=== PATIENT | female | born 1945 | race Caucasian/White ===

== ENCOUNTER → 2016-11-27 | Outpatient (CLI) | payer MEDICARE, OTHER ==
--- NOTE | 2016-11-27 13:03 | REPMRS ---
Patient History The patient states she had a clinical breast exam in 10/26 Patient is postmenopausal and had first child at age 35. Family history of breast cancer in paternal grandmother at age 60. Benign stereotactic core biopsy of the left breast. Took hormonal contraceptives for 10 years. Digital Woman Screen Mammo: November 27, 2016 - Exam #: [id number] Bilateral CC and MLO view(s) were taken. Technologist: Magdalene Almanzar, Technologist Prior study comparison: November 27, 2015, digital woman screen mammo performed at [facility]. November 23, 2014, digital woman screen mammo performed at [facility]. November 24, 2013, bilateral bilat screen digital mammo, performed at [facility] ([facility] FINDINGS: There are scattered fibroglandular densities. There has been no change in the appearance of the mammogram from the prior studies. There is a mild amount of scattered fibroglandular density which is fairly symmetric. There is no interval development of dominant mass, architectural distortion, or clustered microcalcification suggestive of malignancy. ASSESSMENT: BI-RADS/ACR category 1 mammogram. Negative. Recommendation Routine screening mammogram in 1 year (for women over age 40). This mammogram was interpreted with the aid of an FDA-approved computer-aided dectection system. Electronically Signed By: Dudley Sierra MD 11/27/16 [id number]
== END ==
LOC: M WHC 10:23
PROVIDERS: ATTEND Internal Medicine
DX: Z12.31 Encounter for screening mammogram for malignant neoplasm of breast (principal)

== ENCOUNTER → 2017-12-02 | Outpatient (CLI) | payer MEDICARE, OTHER | LOC: M WHC 10:57 | DX: Z12.31 Encounter for screening mammogram for malignant neoplasm of breast (principal) | CPT/HCPCS: 77067 ==

== ENCOUNTER 2018-01-20 06:55 | Day surgery (SDC) | payer MEDICARE, OTHER ==
[2018-01-20] MEDS: NS 1,000 ML IV (07:15)
[2018-01-20] MEDS ORDERED: PROPOFOL 200 MG/20 ML VIAL As Ordered ×2 (07:28)
== END 2018-01-20 09:12 | disposition home or self-care (01) ==
LOC: M OPP 06:55
DX: R10.84 Generalized abdominal pain (principal); K59.00 Constipation, unspecified; Q43.8 Other specified congenital malformations of intestine; K57.30 Diverticulosis of large intestine without perforation or abscess without bleeding; E03.9 Hypothyroidism, unspecified; M19.90 Unspecified osteoarthritis, unspecified site; Z88.0 Allergy status to penicillin; Z79.899 Other long term (current) drug therapy; Z80.3 Family history of malignant neoplasm of breast; Z80.8 Family history of malignant neoplasm of other organs or systems
CPT/HCPCS: 45378

== ENCOUNTER → 2018-12-03 | Outpatient (CLI) | payer MEDICARE, OTHER ==
[~2018-12-03] MED LIST: AZEL0.05 OU; HYDR1CAP25 PO; IBUP-1114 PO; LEVO50TA5 PO; NAPR-885 PO; ZOLP5TAB PO
--- NOTE | 2018-12-03 12:35 | REP ---
BILATERAL SCREENING DIGITAL MAMMOGRAM WITH 3D TOMOSYNTHESIS: There are no palpable abnormalities or other breast complaints. The the patient states she not e had a clinical breast examination in over a year. The the patient states she performs self-breast examinations 12 times per year. The Tyrer-Cuzick Score is: 8.6% . Comparison is 11/23/2012. There are scattered areas of fibroglandular density. There is no dominant mass, micro calcific cluster or architectural distortion that would indicate malignancy. There are benign calcifications. There are no additional findings on 3D tomosynthesiss. There is no change from the prior study. Impression: BIRADS/ACR category 2 mammogram. Findings . Recommendation: Routine annual screening mammography. This mammogram was interpreted with the aid of a FDA approved computer-aided detection system. A. Negative mammogram reports should not delay biopsy if a dominant or clinically suspicious mass is present. B. Not all breast cancers are identified by mammography or tomosynthesis. C. Adenosis and dense breasts may obscure an underlying neoplasm. Patient letter M1. Electronically Signed by Fernando Coronado MD 12/03/2018 12:27 P
== END ==
LOC: M WHC 11:27
PROVIDERS: ATTEND Internal Medicine
DX: Z12.31 Encounter for screening mammogram for malignant neoplasm of breast (principal)

== ENCOUNTER → 2019-12-07 | Outpatient (CLI) | payer MEDICARE, OTHER ==
--- NOTE | 2020-01-02 10:26 | REPMRS ---
Patient History The patient states she had a clinical breast exam in April 2019. Patient is postmenopausal and had first child at age 35. Family history of breast cancer at age 60 in paternal grandmother, pancreatic cancer at age 50 or over in paternal aunt. Benign stereotactic core biopsy of the left breast. Took hormonal contraceptives for 10 years. Digital Woman Screen Mammo: December 07, 2019 - Exam #: [id number] Bilateral CC and MLO view(s) were taken. Technologist: Kristie Flores Technologist Prior study comparison: December 03, 2018, bilateral digital woman screen mammo performed at [facility]. December 02, 2017, bilateral digital woman screen mammo performed at [facility]. November 27, 2016, digital woman screen mammo performed at [facility]. FINDINGS: There are scattered fibroglandular densities. There is a moderate amount of residual fibroglandular tissue which is fairly symmetric. There is no interval development of dominant mass, architectural distortion, or grouped microcalcification typical of malignancy. There has been no change in the appearance of the mammogram from the prior studies. 3-D tomosynthesis shows no additional findings. Report was delayed due to a protracted network disruption experienced by this facility. Assessment: BI-RADS/ACR category 1 mammogram. Negative Mammogram. Recommendation Routine screening mammogram of both breasts in 1 year (for women over age 40). This patient's Lifetime Breast Cancer RIsk is estimated at 8.0 %. This mammogram was interpreted with the aid of an FDA-approved computer-aided dectection system. Electronically Signed By: Dudley Sierra MD 01/02/20 [id number]
== END ==
LOC: M WHC 09:54
PROVIDERS: ATTEND Obstetrics & Gynecology
DX: Z12.31 Encounter for screening mammogram for malignant neoplasm of breast (principal); Z78.0 Asymptomatic menopausal state; Z92.0 Personal history of contraception

== ENCOUNTER → 2020-05-02 | Outpatient (CLI) | payer MEDICARE, OTHER | LOC: M LABSMTC 12:36 | PROVIDERS: ATTEND Pediatrics | DX: Z20.828 Contact with and (suspected) exposure to other viral communicable diseases (principal) ==

== ENCOUNTER → 2020-11-16 | Outpatient (CLI) | payer MEDICARE, OTHER | LOC: M WUC 11:01 | PROVIDERS: ATTEND Internal Medicine | DX: M54.12 Radiculopathy, cervical region (principal); M47.893 Other spondylosis, cervicothoracic region ==

== ENCOUNTER → 2020-12-08 | Outpatient (CLI) | payer MEDICARE, OTHER ==
--- NOTE | 2020-12-08 12:39 | REPMRS ---
Patient History The patient states she has not had a clinical breast exam in over a year. Family history of breast cancer at age 60 in paternal grandmother, pancreatic cancer at age 50 or over in paternal aunt. Benign stereotactic core biopsy of the left breast. Took hormonal contraceptives for 10 years. Patient states no breast complaints today. Patient has signed MRS History Sheet. Digital Woman Screen Mammo: December 08, 2020 - Exam #: [id number] Bilateral CC and MLO view(s) were taken. Technologist: Kristie Flores Technologist Prior study comparison: December 07, 2019, bilateral digital woman screen mammo performed at [facility]. December 03, 2018, bilateral digital woman screen mammo performed at [facility]. FINDINGS: The breast tissue is heterogeneously dense. This may lower the sensitivity of mammography. Screening. Digital screening (2D) mammography was performed bilaterally in the CC and MLO projections. Additionally, breast tomosynthesis (3D mammography) was performed bilaterally in the CC and MLO projections. Todays exam was compared to the prior exam/exams. By history, the patient has no complaints of a palpable breast abnormality or other significant breast complaints. The breasts are unchanged in size and shape. Once again, dense heterogenous fibroglandular elements are seen bilaterally in a stable appearing pattern but to such a degree that the sensitivity of the mammogram in detecting cancer is decreased.There are no dorothy-soft tissue densities or spiculated masses. There is no internal architectural distortion. Once again, stable benign appearing calcifications are seen.There are no suspicious dorothy-calcific clusters. Skin thickening or nipple retraction is not present. IMPRESSION: BI-RADS Category 2- Benign Findings. There is no evidence of malignant alteration of the breasts. Followup examination recommended in one year. The Volpara volumetric breast density category is C, the breasts are heterogenously dense which may obscure small masses. This mammogram was read with the assistance of [employer],an FDA approved computer aided detection system for mammography. The lifetime Tyrer-Cuzick score is 7.5 % Due to the density of the breasts or Tyrer Cuzick score of 20% or greater, MRI/whole breast screening ultrasound is warranted. Negative x-ray reports should not delay surgical consultation if a dominant or clinically suspicious mass is present. Not all breast cancers can be identified by mammography. Therefore, we recommend that you continue to perform regular breast self-examination and physical examination and then promptly contact your physician of any concerns or changes. Adenosis and dense breasts may obscure an underlying neoplasm. Assessment: BI-RADS/ACR category 2 mammogram. Benign Findings. Recommendation Routine screening mammogram of both breasts in 1 year. Electronically Signed By: Brandon Teran DO 12/08/20 [id number]
== END ==
LOC: M WHC 11:19
PROVIDERS: ATTEND Internal Medicine
DX: Z12.31 Encounter for screening mammogram for malignant neoplasm of breast (principal); Z80.3 Family history of malignant neoplasm of breast

== ENCOUNTER → 2021-12-18 | Outpatient (CLI) | payer MEDICARE, OTHER | LOC: M WHC 10:34 | PROVIDERS: ATTEND Obstetrics & Gynecology | DX: Z12.31 Encounter for screening mammogram for malignant neoplasm of breast (principal); M85.89 Other specified disorders of bone density and structure, multiple sites ==

== ENCOUNTER → 2021-12-18 | Outpatient (CLI) | payer MEDICARE, OTHER | LOC: M WHC 10:33 | PROVIDERS: ATTEND Internal Medicine | DX: M81.0 Age-related osteoporosis without current pathological fracture (principal) ==

== ENCOUNTER → 2022-01-19 | Outpatient (CLI) | payer MEDICARE, OTHER ==
[2022-01-19 17:12] LABS: BLOOD UREA NITROGEN 12 MG/DL (7-18); CALCIUM LEVEL 9.2 MG/DL (8.8-10.2); CARBON DIOXIDE LEVEL 31 MEQ/L (21-32); CHLORIDE LEVEL 102 MEQ/L (98-107); CREATININE FOR GFR 0.88 MG/DL (0.55-1.30); GLOMERULAR FILTRATION RATE > 60.0 (>39); GLUCOSE, FASTING 91 MG/DL (70-100); POTASSIUM SERUM 4.6 MEQ/L (3.5-5.1); SODIUM LEVEL 136 MEQ/L (136-145)
== END ==
LOC: M LAB 15:54
PROVIDERS: ATTEND Physician Assistant
DX: U07.1 COVID-19 (principal)

== ENCOUNTER → 2022-10-29 | Outpatient (CLI) | payer MEDICARE, OTHER ==
[2022-10-29 13:26] LABS: ALBUMIN 3.6 G/DL (3.2-5.2); ALKALINE PHOSPHATASE 60 U/L (46-116); ALT/SGPT 22 U/L (7.0-40); AST/SGOT 26 U/L (<34); BILIRUBIN,TOTAL 0.9 MG/DL (0.3-1.2); BLOOD UREA NITROGEN 14 MG/DL (9-23); CALCIUM LEVEL 8.6 MG/DL (8.3-10.6); CARBON DIOXIDE LEVEL 30 MMOL/L (20-31); CHLORIDE LEVEL 104 MMOL/L (98-107); CHOLESTEROL LEVEL 196 MG/DL (<200); CHOLESTEROL RISK RATIO 2.91 (<5); CREATININE FOR GFR 0.92 MG/DL (0.55-1.30); GLOMERULAR FILTRATION RATE > 60.0 (>39); GLUCOSE, FASTING 90 MG/DL (74-106); HDL CHOLESTEROL 67.2 MG/DL (>40); NON-HDL-C 128.8 MG/DL; POTASSIUM SERUM 4.7 MMOL/L (3.5-5.1); SODIUM LEVEL 139 MMOL/L (136-145); TOTAL PROTEIN 6.1 G/DL (5.7-8.2); TRIGLYCERIDES LEVEL 49 MG/DL (<150)
== END ==
LOC: M WUC 09:14
PROVIDERS: ATTEND Internal Medicine
DX: E03.9 Hypothyroidism, unspecified (principal); E78.2 Mixed hyperlipidemia

== ENCOUNTER → 2022-12-19 | Outpatient (CLI) | payer MEDICARE, OTHER | LOC: M WHC 11:07 | PROVIDERS: ATTEND Internal Medicine | DX: Z12.31 Encounter for screening mammogram for malignant neoplasm of breast (principal) ==

== ENCOUNTER → 2023-01-11 | Outpatient (REF) | payer MEDICARE, OTHER | LOC: M LAB REF 08:48 | PROVIDERS: ATTEND Physician Assistant | DX: N30.01 Acute cystitis with hematuria (principal) ==

== ENCOUNTER → 2023-02-13 | Outpatient (CLI) | payer MEDICARE, OTHER | LOC: M PLAIMG 08:51 | PROVIDERS: ATTEND Otolaryngology | DX: J32.9 Chronic sinusitis, unspecified (principal) ==

== ENCOUNTER → 2023-03-07 | Outpatient (REF) | payer MEDICARE, OTHER ==
[2023-03-07 18:05] LABS: CREATININE FOR GFR 0.96 MG/DL (0.55-1.30)
== END ==
LOC: M LABWUC 16:09
PROVIDERS: ATTEND Internal Medicine
DX: R31.9 Hematuria, unspecified (principal)

== ENCOUNTER → 2023-03-13 | Outpatient (CLI) | payer MEDICARE, OTHER ==
[~2023-03-13] MED LIST changes: +ISOVUE-370 76% 100ML VIAL As Ordered ONE
== END ==
LOC: M RAD 13:55
PROVIDERS: ATTEND Internal Medicine
DX: R31.9 Hematuria, unspecified (principal)
CPT/HCPCS: 74178; Q9967

== ENCOUNTER → 2023-04-11 | Outpatient (REF) | payer MEDICARE, OTHER ==
[~2023-04-11] MED LIST changes: -ISOVUE-370 76% 100ML VIAL As Ordered ONE
== END ==
LOC: M LAB REF 14:58
PROVIDERS: ATTEND Internal Medicine
DX: E03.9 Hypothyroidism, unspecified (principal)

== ENCOUNTER → 2023-04-25 | Outpatient (CLI) | payer MEDICARE, OTHER ==
[~2023-04-25] MED LIST changes: +CALC-190 PO; +CHOL1CAP PO; +LEXA1TAB2 PO; +MIRA3350 PO; +MONT10TA97 PO; +PARO40TA2 PO; +QC F0.52 PO; +VITMTA PO; +ZOLP10TA2 PO
[2023-04-25 11:17] LABS: HEMATOCRIT 38.1 % (36.0-47.0); HEMOGLOBIN 12.5 g/dl (12.0-15.5); MEAN CORPUSCULAR HEMOGLOBIN 31.6 pg (27.0-33.0); MEAN CORPUSCULAR HGB CONC 32.8 g/dl (32.0-36.5); MEAN CORPUSCULAR VOLUME 96.2 fl (80.0-96.0); PLATELET COUNT, AUTOMATED 217 10^3/uL (150-450); RED BLOOD COUNT 3.96 10^6/uL (4.00-5.40); WHITE BLOOD COUNT 4.8 10^3/uL (4.0-10.0)
[2023-04-25 11:38] LABS: APPEARANCE, URINE HAZY (CLEAR); BACTERIA, URINE AUTO NEGATIVE (NEGATIVE); BILIRUBIN, URINE AUTO NEGATIVE (NEGATIVE); BLOOD, URINE BLOOD 1+ (NEGATIVE); COLOR, URINE YELLOW (YELLOW); GLUCOSE, URINE (UA) AUTO NEGATIVE (NEGATIVE); KETONE, URINE AUTO NEGATIVE (NEGATIVE); LEUKOCYTE ESTERASE, URINE AUTO NEGATIVE (NEGATIVE); NITRITE, URINE AUTO NEGATIVE (NEGATIVE); PROTEIN, URINE AUTO NEGATIVE (NEGATIVE); RBC, URINE AUTO 20 /HPF (0-3); SPECIFIC GRAVITY URINE AUTO 1.011 (1.002-1.035); SQUAMOUS EPITHELIAL CELL UR AU 1 /HPF (0-6); UROBILINOGEN, URINE AUTO 0.2 mg/dL (0.0-2.0); WBC, URINE AUTO 1 /HPF (0-3)
[2023-04-25 11:48] LABS: BLOOD UREA NITROGEN 16 MG/DL (9-23); CALCIUM LEVEL 9.1 MG/DL (8.3-10.6); CARBON DIOXIDE LEVEL 31 MMOL/L (20-31); CHLORIDE LEVEL 102 MMOL/L (98-107); CREATININE FOR GFR 0.82 MG/DL (0.55-1.30); GLOMERULAR FILTRATION RATE > 60.0 (>39); GLUCOSE, FASTING 78 MG/DL (74-106); POTASSIUM SERUM 4.1 MMOL/L (3.5-5.1); SODIUM LEVEL 139 MMOL/L (136-145)
== END ==
LOC: M RAD 10:33
PROVIDERS: ATTEND Nurse Practitioner Family
DX: Z01.818 Encounter for other preprocedural examination (principal)

== ENCOUNTER 2023-05-01 07:50 | Day surgery (SDC) | payer MEDICARE, OTHER ==
[~2023-05-01] VITALS: Ht 157.5 cm; Wt 49.0 kg
[2023-05-01] MEDS ORDERED: LR 1,000 ML IV SCH ×2 (09:00→11:30)
[2023-05-01] MEDS ORDERED: ceFAZolin SOD 2 GM in IV 1 EA IV ONE (09:50)
[2023-05-01] MEDS ORDERED: ISOVUE-300 61% 100ML VIAL As Ordered ONE (10:14)
[2023-05-01] MEDS ORDERED: METOCLOPRAMIDE INJ 10MG/2ML VIAL As Ordered ONE (10:39)
[2023-05-01] MEDS ORDERED: LIDOCAINE 2% 100MG/5ML SDV (FOR ANES.) As Ordered ONE (10:39)
[2023-05-01] MEDS ORDERED: fentaNYL 100 MCG/2 ML INJECTION As Ordered ONE (10:39)
[2023-05-01] MEDS ORDERED: ONDANSETRON 4MG 2ML VIAL As Ordered ONE (10:39)
[2023-05-01] MEDS ORDERED: propofoL 200 MG/20 ML VIAL As Ordered ONE (10:39)
[2023-05-01] MEDS ORDERED: MIDAZOLAM INJ 2MG/2ML VIAL As Ordered ONE (10:39)
[2023-05-01] MEDS ORDERED: dexmedeTOMIDine (4MCG/ML)200MCG/50ML BTL (PRECEDEX) As Ordered ONE ×2 (10:39→11:02)
[2023-05-01] MEDS ORDERED: ACETAMINOPHEN 1000MG 100ML IV BAG As Ordered ONE (10:43)
[2023-05-01] MEDS ORDERED: oxyCODONE 5MG TAB PO PRN (11:30)
[2023-05-01] MEDS ORDERED: ONDANSETRON 4MG 2ML VIAL IV PRN (11:30)
[2023-05-01] MEDS ORDERED: fentaNYL 100 MCG/2 ML INJECTION IV PRN (11:30)
[2023-05-01] MEDS ORDERED: HYDROMORPHONE HCL 0.5 MG/ 0.5 ML SYRINGE IV PRN (11:30)
[2023-05-01] MEDS ORDERED: MACR100C43 PO (12:04)
[2023-05-01] MEDS ORDERED: OXYB5TAB11 PO (12:04)
[2023-05-01] MEDS ORDERED: PYRI1TAB5 PO (12:04)
[2023-05-01 12:52] VITALS: BP 131/66; TEMP 98.5; O2SAT 98
== END 2023-05-01 12:57 | disposition home or self-care (01) ==
LOC: M SDC 07:50
PROVIDERS: ATTEND Urology
DX: N13.1 Hydronephrosis with ureteral stricture, not elsewhere classified (principal); E03.9 Hypothyroidism, unspecified; Z90.721 Acquired absence of ovaries, unilateral; Z79.899 Other long term (current) drug therapy; Z79.890 Hormone replacement therapy; Z87.891 Personal history of nicotine dependence; Z88.0 Allergy status to penicillin
CPT/HCPCS: 52332; 52344; 76000; C1769; C2617; J0131; J1100; J2250; J2405; J2765; J3010; Q9967

== ENCOUNTER → 2023-05-22 | Outpatient (REF) | payer MEDICARE, OTHER ==
[~2023-05-22] MED LIST changes: +MACR100C43 PO; +OXYB5TAB11 PO; +PYRI1TAB5 PO
== END ==
LOC: M SFHCWAGY 15:55
PROVIDERS: ATTEND Nurse Practitioner Family
DX: Z12.4 Encounter for screening for malignant neoplasm of cervix (principal); N95.2 Postmenopausal atrophic vaginitis
CPT/HCPCS: 87624; G0123

== ENCOUNTER → 2023-06-13 | Outpatient (CLI) | payer MEDICARE, OTHER ==
[~2023-06-13] MED LIST changes: +FUROSEMIDE 20MG/2ML VIAL As Ordered ONE
== END ==
LOC: M RAD 12:31
PROVIDERS: ATTEND Urology
DX: N28.89 Other specified disorders of kidney and ureter (principal)
CPT/HCPCS: 78708; A9562; J1940

== ENCOUNTER → 2023-09-12 | Outpatient (CLI) | payer MEDICARE, OTHER ==
[~2023-09-12] MED LIST changes: -FUROSEMIDE 20MG/2ML VIAL As Ordered ONE; -OXYB5TAB11 PO; +OXYB5TAB14 PO
[2023-09-12 12:44] LABS: BASO % 0.7 % (0.0-1.0); EOS # 0.1 10^3/uL (0.0-0.5); EOS % 1.8 % (0.0-3.0); HEMATOCRIT 38.6 % (36.0-47.0); HEMOGLOBIN 12.8 g/dl (12.0-15.5); LYMPH # 1.7 10^3/uL (1.5-5.0); LYMPH % 29.8 % (24.0-44.0); MEAN CORPUSCULAR HGB CONC 33.2 g/dl (32.0-36.5); MEAN CORPUSCULAR VOLUME 96.5 fl (80.0-96.0); MONO # 0.6 10^3/uL (0.0-0.8); MONO % 10.7 % (2.0-8.0); NEUTROPHILS # 3.2 10^3/uL (1.5-8.5); NEUTROPHILS % 56.8 % (36.0-66.0); PLATELET COUNT, AUTOMATED 207 10^3/uL (150-450); WHITE BLOOD COUNT 5.6 10^3/uL (4.0-10.0)
[2023-09-12 13:11] LABS: ALBUMIN 3.6 G/DL (3.2-5.2); BILIRUBIN,TOTAL 0.9 MG/DL (0.3-1.2); CALCIUM LEVEL 8.8 MG/DL (8.3-10.6); CREATININE FOR GFR 1.01 MG/DL (0.55-1.30); GLOMERULAR FILTRATION RATE 56.6 (>39); POTASSIUM SERUM 4.5 MMOL/L (3.5-5.1); TOTAL PROTEIN 6.3 G/DL (5.7-8.2)
== END ==
LOC: M WUC 09:32
PROVIDERS: ATTEND Internal Medicine
DX: R31.9 Hematuria, unspecified (principal)

== ENCOUNTER → 2023-11-10 | Outpatient (CLI) | payer MEDICARE, OTHER ==
[~2023-11-10] MED LIST changes: +THERTAB52 PO; +VITA100093 PO
[2023-11-10 12:46] LABS: HEMATOCRIT 38.6 % (36.0-47.0); HEMOGLOBIN 12.7 g/dl (12.0-15.5); MEAN CORPUSCULAR HEMOGLOBIN 32.2 pg (27.0-33.0); MEAN CORPUSCULAR HGB CONC 32.9 g/dl (32.0-36.5); PLATELET COUNT, AUTOMATED 193 10^3/uL (150-450); RED BLOOD COUNT 3.94 10^6/uL (4.00-5.40); WHITE BLOOD COUNT 9.9 10^3/uL (4.0-10.0)
[2023-11-10 12:51] LABS: APPEARANCE, URINE CLEAR (CLEAR); BACTERIA, URINE AUTO NEGATIVE (NEGATIVE); BILIRUBIN, URINE AUTO NEGATIVE (NEGATIVE); BLOOD, URINE BLOOD 1+ (NEGATIVE); COLOR, URINE YELLOW (YELLOW); GLUCOSE, URINE (UA) AUTO NEGATIVE (NEGATIVE); KETONE, URINE AUTO NEGATIVE (NEGATIVE); LEUKOCYTE ESTERASE, URINE AUTO NEGATIVE (NEGATIVE); MUCUS, URINE SMALL (NEGATIVE); NITRITE, URINE AUTO NEGATIVE (NEGATIVE); PROTEIN, URINE AUTO NEGATIVE (NEGATIVE); RBC, URINE AUTO 29 /HPF (0-3); SQUAMOUS EPITHELIAL CELL UR AU 0 /HPF (0-6); UROBILINOGEN, URINE AUTO 0.2 mg/dL (0.0-2.0); WBC, URINE AUTO 4 /HPF (0-3)
[2023-11-10 13:05] LABS: INR 1.03; PARTIAL THROMBOPLASTIN TIME 36.6 SECONDS (24.8-34.2); PROTHROMBIN TIME 13.2 SECONDS (12.5-14.5)
[2023-11-10 13:27] LABS: ALBUMIN 3.8 G/DL (3.2-5.2); ALKALINE PHOSPHATASE 72 U/L (46-116); ALT/SGPT 69 U/L (7.0-40); AST/SGOT 43 U/L (<34); BLOOD UREA NITROGEN 14 MG/DL (9-23); CALCIUM LEVEL 8.9 MG/DL (8.3-10.6); CARBON DIOXIDE LEVEL 33 MMOL/L (20-31); CHLORIDE LEVEL 102 MMOL/L (98-107); CREATININE FOR GFR 0.88 MG/DL (0.55-1.30); GLOMERULAR FILTRATION RATE > 60.0 (>39); GLUCOSE, FASTING 86 MG/DL (74-106); POTASSIUM SERUM 4.1 MMOL/L (3.5-5.1); SODIUM LEVEL 138 MMOL/L (136-145); TOTAL PROTEIN 6.3 G/DL (5.7-8.2)
== END ==
LOC: M RAD 10:26
PROVIDERS: ATTEND Urology
DX: N13.5 Crossing vessel and stricture of ureter without hydronephrosis (principal); I49.3 Ventricular premature depolarization; R94.31 Abnormal electrocardiogram [ECG] [EKG]

== ENCOUNTER 2023-11-19 06:06 | Inpatient (IN) | payer MEDICARE, OTHER ==
[2023-11-19] VITALS (9 sets, daily range): BP systolic 112–150; BP diastolic 60–85; TEMP 97.2–98; O2SAT 82–97
[~2023-11-19] VITALS: Ht 157.5 cm; Wt 48.5 kg
[2023-11-19] MEDS ORDERED: LR 1,000 ML IV SCH (06:45)
[2023-11-19] MEDS ORDERED: HOME MED LIST COMPLETE! XX SCH (07:15)
[2023-11-19] MEDS ORDERED: ONDANSETRON 4MG 2ML VIAL IV PRN ×2 (07:35→11:55)
[2023-11-19] MEDS ORDERED: fentaNYL 250 MCG/5 ML INJECTION As Ordered ONE (08:08)
[2023-11-19] MEDS ORDERED: ONDANSETRON 4MG 2ML VIAL As Ordered ONE (08:08)
[2023-11-19] MEDS ORDERED: MIDAZOLAM INJ 2MG/2ML VIAL As Ordered ONE (08:08)
[2023-11-19] MEDS ORDERED: propofoL 200 MG/20 ML VIAL As Ordered ONE (08:08)
[2023-11-19] MEDS ORDERED: SUGAMMADEX SODIUM 500 MG/5 ML VIAL (BRIDION) As Ordered ONE (08:08)
[2023-11-19] MEDS ORDERED: LIDOCAINE 2% 100MG/5ML SDV (FOR ANES.) As Ordered ONE (08:08)
[2023-11-19] MEDS ORDERED: ROCURONIUM BROMIDE 50MG/5ML VIAL As Ordered ONE (08:08)
[2023-11-19] MEDS ORDERED: ePHEDrine SULFATE 25 MG/5 ML(5MG/ML) SYRINGE As Ordered ONE (08:13)
[2023-11-19] MEDS ORDERED: ACETAMINOPHEN 1000MG 100ML IV BAG As Ordered ONE (08:21)
[2023-11-19] MEDS: DOCUSATE SODIUM 100MG CAPSULE PO SCH (09:00)
[2023-11-19] MEDS ORDERED: HYDROmorphone HCL 2MG/ML 1ML VIAL As Ordered ONE (09:52)
[2023-11-19] MEDS: METHYLENE BLUE 0.5% (5MG/ML) 10 ML AMP (PROVAYBLUE) As Ordered ONE (11:00)
[2023-11-19] MEDS: LIDOCAINE 1% SDV 30ML VIAL As Ordered ONE (11:40)
[2023-11-19] MEDS ORDERED: fentaNYL 100 MCG/2 ML INJECTION IV PRN (11:55)
[2023-11-19] MEDS ORDERED: oxyCODONE 5MG TAB PO PRN (11:55)
[2023-11-19 13:30] LABS: HEMATOCRIT 37.3 % (36.0-47.0); HEMOGLOBIN 12.1 g/dl (12.0-15.5); MEAN CORPUSCULAR HEMOGLOBIN 31.6 pg (27.0-33.0); MEAN CORPUSCULAR HGB CONC 32.4 g/dl (32.0-36.5); MEAN CORPUSCULAR VOLUME 97.4 fl (80.0-96.0); PLATELET COUNT, AUTOMATED 275 10^3/uL (150-450); RED BLOOD COUNT 3.83 10^6/uL (4.00-5.40); WHITE BLOOD COUNT 12.2 10^3/uL (4.0-10.0)
[2023-11-19 13:42] LABS: BLOOD UREA NITROGEN 10 MG/DL (9-23); CALCIUM LEVEL 8.7 MG/DL (8.3-10.6); CARBON DIOXIDE LEVEL 25 MMOL/L (20-31); CHLORIDE LEVEL 105 MMOL/L (98-107); CREATININE FOR GFR 0.82 MG/DL (0.55-1.30); GLOMERULAR FILTRATION RATE > 60.0 (>39); GLUCOSE, FASTING 145 MG/DL (74-106); POTASSIUM SERUM 4.5 MMOL/L (3.5-5.1); SODIUM LEVEL 139 MMOL/L (136-145)
[2023-11-19] MEDS: ceFAZolin SOD 2 GM in IV 1 EA IV ONE (14:34)
[2023-11-19] MEDS: NS 1,000 ML IV SCH (16:46)
[2023-11-19] MEDS: ceFAZolin SOD 1 GM in D5W MINI-BAG PLUS 50 ML IV SCH (16:46)
[2023-11-19] MEDS: PERCOCET 5MG/325MG TAB PO PRN ×2 (16:47→21:25)
[2023-11-19] MEDS: PARoxetine 20MG TABLET PO SCH (21:25)
[2023-11-20 05:34] VITALS: BP 110/61; TEMP 97.6; O2SAT 94
[2023-11-20] MEDS: LEVOTHYROXINE 50MCG TABLET (0.05MG) PO SCH (05:42)
[2023-11-20 06:33] LABS: HEMATOCRIT 32.9 % (36.0-47.0); HEMOGLOBIN 10.5 g/dl (12.0-15.5); MEAN CORPUSCULAR HEMOGLOBIN 31.2 pg (27.0-33.0); MEAN CORPUSCULAR HGB CONC 31.9 g/dl (32.0-36.5); MEAN CORPUSCULAR VOLUME 97.6 fl (80.0-96.0); PLATELET COUNT, AUTOMATED 268 10^3/uL (150-450); RED BLOOD COUNT 3.37 10^6/uL (4.00-5.40); WHITE BLOOD COUNT 14.4 10^3/uL (4.0-10.0)
[2023-11-20 06:56] LABS: BLOOD UREA NITROGEN 10 MG/DL (9-23); CALCIUM LEVEL 8.6 MG/DL (8.3-10.6); CARBON DIOXIDE LEVEL 30 MMOL/L (20-31); CHLORIDE LEVEL 105 MMOL/L (98-107); CREATININE FOR GFR 0.76 MG/DL (0.55-1.30); GLOMERULAR FILTRATION RATE > 60.0 (>39); GLUCOSE, FASTING 91 MG/DL (74-106); POTASSIUM SERUM 4.7 MMOL/L (3.5-5.1); SODIUM LEVEL 139 MMOL/L (136-145)
[2023-11-20] MEDS: ACETAMINOPHEN TAB 650MG DOSE (2X325MG) PO PRN (07:52)
[2023-11-20 08:31] VITALS: BP 115/64; TEMP 97.5; O2SAT 91
[2023-11-20 12:00] VITALS: BP 114/65; TEMP 97.7; O2SAT 93
[2023-11-20] MEDS ORDERED: PERCOCET PO (13:41)
== END 2023-11-20 14:35 | disposition home or self-care (01) | DRG 660 ==
LOC: M OR 06:06 → M MS5PR 14:00
PROVIDERS: ADMIT Urology; ATTEND Urology
PROC: 0T774DZ Dilation of Left Ureter with Intraluminal Device, Percutaneous Endoscopic Approach (ICD-10-PCS; 2023-11-19)
PROC: 8E0W4CZ Robotic Assisted Procedure of Trunk Region, Percutaneous Endoscopic Approach (ICD-10-PCS; 2023-11-19)
PROC: 0TC44ZZ Extirpation of Matter from Left Kidney Pelvis, Percutaneous Endoscopic Approach (ICD-10-PCS; principal; 2023-11-19 07:30)
DX: N20.0 Calculus of kidney (principal); N13.8 Other obstructive and reflux uropathy; Z88.0 Allergy status to penicillin; Z79.899 Other long term (current) drug therapy; E03.9 Hypothyroidism, unspecified

== ENCOUNTER 2023-12-18 07:30 | Day surgery (SDC) | payer MEDICARE, OTHER ==
[~2023-12-18] VITALS: Ht 157.5 cm; Wt 46.7 kg
[~2023-12-18 07:30] MED LIST changes: +PERCOCET PO
[2023-12-18] MEDS ORDERED: LR 1,000 ML IV SCH ×2 (07:45→11:10)
[2023-12-18] MEDS ORDERED: KETOROLAC 60MG 2ML VIAL As Ordered ONE (09:17)
[2023-12-18] MEDS ORDERED: propofoL 200 MG/20 ML VIAL As Ordered ONE (09:17)
[2023-12-18] MEDS ORDERED: LIDOCAINE 2% 100MG/5ML SDV (FOR ANES.) As Ordered ONE (09:17)
[2023-12-18] MEDS ORDERED: ACETAMINOPHEN 1000MG 100ML IV BAG As Ordered ONE (09:17)
[2023-12-18] MEDS: ceFAZolin SOD 2 GM in IV 1 EA IV ONE (09:42)
[2023-12-18] MEDS ORDERED: FLOM0.4C39 PO (10:04)
[2023-12-18] MEDS ORDERED: TRAM50TA2 PO (10:04)
[2023-12-18] MEDS ORDERED: OXYB10TA23 PO (10:04)
[2023-12-18] MEDS ORDERED: ONDANSETRON 4MG 2ML VIAL As Ordered ONE (10:37)
[2023-12-18] MEDS ORDERED: ROCURONIUM BROMIDE 50MG/5ML VIAL As Ordered ONE (10:37)
[2023-12-18] MEDS ORDERED: SUGAMMADEX SODIUM 500 MG/5 ML VIAL (BRIDION) As Ordered ONE (10:43)
[2023-12-18] MEDS ORDERED: fentaNYL 100 MCG/2 ML INJECTION IV PRN (11:10)
[2023-12-18] MEDS ORDERED: ONDANSETRON 4MG 2ML VIAL IV PRN (11:10)
[2023-12-18 11:35] VITALS: BP 134/68; TEMP 98.2; O2SAT 95
== END 2023-12-18 12:15 | disposition home or self-care (01) ==
LOC: M SDC 07:30
PROVIDERS: ATTEND Urology
DX: N20.0 Calculus of kidney (principal); E03.9 Hypothyroidism, unspecified; E78.00 Pure hypercholesterolemia, unspecified; K21.9 Gastro-esophageal reflux disease without esophagitis; Z87.19 Personal history of other diseases of the digestive system; Z79.899 Other long term (current) drug therapy; Z79.890 Hormone replacement therapy; Z90.721 Acquired absence of ovaries, unilateral; Z88.0 Allergy status to penicillin
CPT/HCPCS: 50590; 74018; J0131; J0690; J1100; J1885; J2405

== ENCOUNTER → 2023-12-26 | Outpatient (CLI) | payer MEDICARE, OTHER ==
[~2023-12-26] MED LIST changes: +FLOM0.4C39 PO; +OXYB10TA23 PO; +TRAM50TA2 PO
== END ==
LOC: M RAD 12:27
PROVIDERS: ATTEND Urology
DX: N20.0 Calculus of kidney (principal)

== ENCOUNTER → 2024-02-09 | Outpatient (CLI) | payer MEDICARE, OTHER ==
[~2024-02-09] MED LIST changes: +ISOVUE-370 76% 100ML VIAL As Ordered ONE
== END ==
LOC: M RAD 11:04
PROVIDERS: ATTEND Urology
DX: N13.5 Crossing vessel and stricture of ureter without hydronephrosis (principal); R91.8 Other nonspecific abnormal finding of lung field; N20.0 Calculus of kidney
CPT/HCPCS: 74178; Q9967

== ENCOUNTER → 2024-04-14 | Outpatient (REF) | payer MEDICARE, OTHER ==
[~2024-04-14] MED LIST changes: -ISOVUE-370 76% 100ML VIAL As Ordered ONE
[2024-04-14 19:04] LABS: ALBUMIN 3.5 G/DL (3.2-5.2); BILIRUBIN,TOTAL 0.4 MG/DL (0.3-1.2); CALCIUM LEVEL 9.9 MG/DL (8.3-10.6); CHOLESTEROL RISK RATIO 3.33 (<5); CREATININE FOR GFR 0.98 MG/DL (0.55-1.30); GLOMERULAR FILTRATION RATE 58.4 (>39); HDL CHOLESTEROL 66.8 MG/DL (>40); LDL CHOLESTEROL 134.2 MG/DL (<100); NON-HDL-C 156.2 MG/DL; POTASSIUM SERUM 4.5 MMOL/L (3.5-5.1); TOTAL PROTEIN 6.8 G/DL (5.7-8.2)
[2024-04-14 19:07] LABS: THYROID STIMULATING HORMONE 1.667 uIU/ML (0.55-4.78)
== END ==
LOC: M LABWUC 17:47
PROVIDERS: ATTEND Internal Medicine
DX: E78.2 Mixed hyperlipidemia (principal); E03.9 Hypothyroidism, unspecified

== ENCOUNTER → 2024-09-20 | Outpatient (CLI) | payer MEDICARE, OTHER ==
[~2024-09-20] MED LIST changes: -FLOM0.4C39 PO; +TAMS-18 PO
== END ==
LOC: M RAD 10:54
PROVIDERS: ATTEND Urology
DX: N20.0 Calculus of kidney (principal)

== ENCOUNTER → 2025-02-23 | Outpatient (CLI) | payer MEDICARE, OTHER ==
[~2025-02-23] MED LIST changes: +ZOLP10TA11 PO; -ZOLP10TA2 PO; -ZOLP5TAB PO; +ZOLP5TAB9 PO
== END ==
LOC: M WHC 15:48
PROVIDERS: ATTEND Student in an Organized Health Care Education/Training Program
DX: Z12.31 Encounter for screening mammogram for malignant neoplasm of breast (principal); R92.323 Mammographic fibroglandular density, bilateral breasts